=== PATIENT | male | born 1975 | race Caucasian/White ===

== ENCOUNTER 2023-01-03 00:26 | Day surgery (SDC) | payer BC, SELFPAY ==
[2022-12-24 08:48] VITALS: BMI 37.0
[2023-01-03 06:27] VITALS: BP 144/93; PULSE 73; RESP 18; TEMP 36.2; O2SAT 100; BMI 36.3
[2023-01-03] MEDS: LACTATED RINGERS 1,000 ML 150 ML IV CONT (06:40)
--- NOTE | 2023-01-03 07:10 | P.PNAN_ITS ---
Anes - Initial Pre Proc Eval Procedure: Operation Date: 01/03/23 07:30 Proposed Procedures p Colonoscopy - Westley Merlos MD Date/Time: 01/03/23 07:10 Surgeon: Westley Merlos MD Pre Op Diagnosis: neoplasm screening Patient Data Age: 47 Gender: M Height: 1.75 m Weight: 111.5 kg Last Vital Signs Temp 36.2 C L 01/03/23 06:27 Pulse 73 01/03/23 06:27 Resp 18 01/03/23 06:27 BP 144/93 H 01/03/23 06:27 Pulse Ox 100 01/03/23 06:27 O2 Del Method Room Air 01/03/23 06:27 Allergies Allergy/AdvReac Type Severity Reaction Status Date / Time No Known Allergies Allergy Verified 01/03/23 06:24 Home Medications Medication Instructions Recorded Confirmed Type pantoprazole 40 mg tablet,delayed 40 mg PO QAM 06/23/22 01/03/23 History release amlodipine 5 mg tablet See Rx Instructions .Route 09/20/22 01/03/23 Rx .COMPLEX #90 tabs metoprolol succinate 50 mg See Rx Instructions .Route 10/19/22 01/03/23 Rx tablet,extended release 24 hr .COMPLEX #90 tabs niacin 1,000 mg tablet,extended 1,000 mg PO .qd #90 tabs 12/02/22 01/03/23 Rx release rosuvastatin 10 mg tablet (Crestor) 10 mg PO QHS #90 tabs 12/02/22 01/03/23 Rx valsartan 160 1 tablet PO DAILY #90 tabs 12/02/22 01/03/23 Rx mg-hydrochlorothiazide 12.5 mg tablet aspirin 81 mg tablet 81 mg PO DAILY 12/24/22 01/03/23 History Patient hx anesthesia problems: none Family hx anesthesia problems: none Results Review: All pre-operative results and documents have been reviewed as part of the pre-operative evaluation. [facility] Past Medical History Medical History Arthritis Colon cancer screening H/O nephrolithotomy with removal of calculi Hypercholesteremia Hypertension Kidney stones MRSA (methicillin resistant staph aureus) culture positive Skin cyst Family History Family History Father Lung cancer Mother Breast cancer Social History Social History Smoking status: Never smoker Alcohol intake: current Drinks per week: 5 Substance use: never Substance use type: does not use Living arrangements: with family Occupation/Education: occupation Additional occupation/education comments: GARDENER at [employer] Spiritual care concerns: No Agree to blood products: Yes Anes - Eval Final PreProcedure Day of Procedure 01/03/23 07:10 Patient weight: obese Heart: regular rate and rhythm Lungs: clear to auscultation Airway: Mallampati scale class II Neurological: alert and oriented Last oral intake: >/= 8 hours ASA classification: III Emergent: no Anesthetic plan: proceed Anesthesia type and monitoring: general GIVS and standard monitoring Results Review: All pre-operative results and documents have been reviewed as part of the pre- operative evaluation. Informed Consent: The patient's anesthetic plan and its attendant risks and benefits were discussed with the patient/family/POA. Questions were solicited and answers provided to the satisfaction of the patient/family/POA.
--- NOTE | 2023-01-03 07:34 | PM.HPGS ---
History of Present Illness History of Present Illness Consent: Risks, benefits, and alternatives have been discussed and questions answered. Patient agrees to proceed with procedure. Chief complaint: neoplasm screening Narrative: Tk Ross is a 47 year old male here for screening colonoscopy Review of Systems Constitutional: Constitutional: Denies headache(s) and Denies weakness Eyes: Eyes: Denies blurry vision ENT: Reports Normal hearing present, Denies headache(s) and Denies neck pain Cardiovascular: Cardiovascular: Denies chest pain and Denies dyspnea Respiratory: Respiratory: Denies dyspnea Gastrointestinal: Gastrointestinal: Reports no additional gastrointestinal complaints Genitourinary: Genitourinary: Denies dysuria Musculoskeletal: Musculoskeletal: Denies neck pain Integumentary/Breasts: Skin/Breast: Denies dry skin Neurologic: Reports Normal hearing present, Denies headache(s) and Denies weakness Psychiatric: Psychiatric: Denies anxiety Endocrine: Endocrine: Denies change in body appearance Hematologic/Lymphatic: Hematologic/Lymphatic: Denies easy bleeding Allergic/Immunologic: Allergic/Immunologic: Denies urticaria PMFSH Past Medical History Medical History Arthritis Colon cancer screening H/O nephrolithotomy with removal of calculi Hypercholesteremia Hypertension Kidney stones MRSA (methicillin resistant staph aureus) culture positive Skin cyst Family History Family History Father Lung cancer Mother Breast cancer Social History Social History Smoking status: Never smoker Alcohol intake: current Drinks per week: 5 Substance use: never Substance use type: does not use Living arrangements: with family Occupation/Education: occupation 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 [employer] concerns: No Agree to blood products: Yes Meds Home Medications and Allergies Home Medications Medication Instructions Recorded Confirmed Type pantoprazole 40 mg tablet,delayed 40 mg PO QAM 06/23/22 01/03/23 History release amlodipine 5 mg tablet See Rx Instructions .Route 09/20/22 01/03/23 Rx .COMPLEX #90 tabs metoprolol succinate 50 mg See Rx Instructions .Route 10/19/22 01/03/23 Rx tablet,extended release 24 hr .COMPLEX #90 tabs niacin 1,000 mg tablet,extended 1,000 mg PO .qd #90 tabs 12/02/22 01/03/23 Rx release rosuvastatin 10 mg tablet (Crestor) 10 mg PO QHS #90 tabs 12/02/22 01/03/23 Rx valsartan 160 1 tablet PO DAILY #90 tabs 12/02/22 01/03/23 Rx mg-hydrochlorothiazide 12.5 mg tablet aspirin 81 mg tablet 81 mg PO DAILY 12/24/22 01/03/23 History Allergies Allergy/AdvReac Type Severity Reaction Status Date / Time No Known Allergies Allergy Verified 01/03/23 06:24 Vital Signs Vital Signs - 24 hr 01/03/23 06:27 Temperature 97.1 F L Pulse Rate 73 Respiratory Rate 18 Blood Pressure 144/93 H Pulse Oximetry 100 Oxygen Delivery Room Air Exam Const: General: comfortable and no acute distress HENMT: Face/Nose/Sinus: Normal nares present Eyes: General: appearance normal, both eyes and all related structures Neck: Neck: no JVD Resp: Auscultation: clear to auscultation bilaterally Cardio: Rate: regular rate Rhythm: regular rhythm GI: Inspection: non-distended GI Palp: Yes Soft to palpation Skin: General skin exam: normal color Neuro: General: gait normal Speech: normal speech Extrem: General: normal to inspection Psych: Mental Status: mental status grossly normal Assessment and Plan Assessment and plan (1) Colon cancer screening: Code(s): Z12.11 - Encounter for screening for malignant neoplasm of colon Status: Acute Assessment and Plan: colonoscopy
[2023-01-03 07:57] VITALS: BP 117/76; PULSE 77; RESP 17; TEMP 36.2; O2SAT 100
[2023-01-03 08:10] VITALS: BP 127/86; PULSE 73; RESP 21; O2SAT 96
== END 2023-01-03 08:14 | disposition home or self-care (01) ==
PROVIDERS: PCP Family Medicine; Visit Provider Internal Medicine Gastroenterology
PROC: 0DJD8ZZ Inspection of Lower Intestinal Tract, Via Natural or Artificial Opening Endoscopic (ICD-10-PCS; CPT 45378; principal; 2023-01-03 07:30)
DX: Z12.11 Encounter for screening for malignant neoplasm of colon (principal); D12.5 Benign neoplasm of sigmoid colon; K57.30 Diverticulosis of large intestine without perforation or abscess without bleeding; I10 Essential (primary) hypertension; E78.00 Pure hypercholesterolemia, unspecified; M19.90 Unspecified osteoarthritis, unspecified site; Z87.442 Personal history of urinary calculi; Z79.82 Long term (current) use of aspirin
CPT/HCPCS: 45385; 88305; J2704; J7120

== ENCOUNTER 2024-12-12 08:39 | Outpatient (CLI) | payer BC, SELFPAY ==
--- NOTE | ~2024-12-12 | MR_ITS ---
EXAMINATION: MR knee RT wo con DATE: 12/12/2024 09:06 INDICATION: Right knee pain TECHNIQUE: Magnetic resonance imaging (MRI) of the right knee was performed without intravenous contr ast. Sequences included coronal PD-weighted FSE, coronal PD-weighted FS FSE, sagittal T2-weighted FS E, sagittal PD-weighted FS FSE and axial PD weighted fat saturated FSE. COMPARISON: None. FINDINGS: Medial compartment: Medial meniscus is normal. Articular cartilage is normal. Lateral compartment: Lateral meniscus is normal. Articular cartilage is normal. Patellofemoral compartment: Articular cartilage is normal. Ligaments and tendons: Anterior and posterior cruciate ligaments are normal. The medial collateral ligament and fibular lopez ateral ligament complex are normal. Moderate patellar tendinopathy. Prominent hypertrophic change at the anterior tibial tuberosity with multiple heterotopic ossicles within the distal tendon and along the deep margin of its tibial insertion which most typically seen as sequela of childhood Allen-Schl atter's disease. Mild distal quadriceps tendinopathy. The visualized medial and lateral hamstring ten dons as well as the iliotibial band are normal. Fluid: Physiologic amount of fluid in the joint space. No loose osteochondral bodies identified. Osseous/other: Mild reactive edema at the osseous insertions of the patellar tendon. Marrow signal is otherwise norm al. No fracture or pathologic marrow replacing process. IMPRESSION: 1. Moderate patellar tendinopathy with prominent hypertrophic changes and heterotopic ossicles at the tibial insertion most typically seen as sequela of childhood Chester-Schlatter disease but could also be seen with old trauma. 2. Normal brain cartilage, menisci and stabilizing ligaments. Reviewed, dictated and finalized at location [facility]. [facility] IMPRESSION: 1. Moderate patellar tendinopathy with prominent hypertrophic changes and heter otopic ossicles at the tibial insertion most typically seen as sequela of child vaz Chester-Schlatter disease but could also be seen with old trauma. 2. Normal brain cartilage, menisci and stabilizing ligaments.
== END 2024-12-12 08:40 | disposition home or self-care (01) ==
LOC: MICIMG 08:40
PROVIDERS: PCP Physician Assistant Medical; Visit Provider Nurse Practitioner Family
DX: M25.561 Pain in right knee (principal); M76.51 Patellar tendinitis, right knee; M61.58 Other ossification of muscle, other site; M17.11 Unilateral primary osteoarthritis, right knee
CPT/HCPCS: 73721